=== PATIENT | female | born 1950 | race Caucasian/White ===

== ENCOUNTER 2017-11-20 09:14 | Emergency (ER) | payer MEDICARE ==
[2017-11-20] MEDS ORDERED: ONDANSETRON HCL/PF 2 MG/ML VIAL IV ONE (09:42)
[2017-11-20] MEDS ORDERED: ONDANSETRON HCL/PF 2 MG/ML VIAL ONE (09:43)
[2017-11-20 09:57] LABS: Hematocrit 42.3 % (37.0-47.0); Hemoglobin 13.9 gm/dL (12.5-16.0); Mean Cell Volume 87.2 fl (78-100); Mean Corpuscular Hemoglobin 28.7 pg (27-31); Mean Corpuscular Hgb Conc 32.9 g/dl (32-36); Mean Platelet Volume 10.9 fl (6.0-9.5); Neutrophil # 1.1 K/mm3 (1.3-6.0); Neutrophil % 49.9 % (42-75.0); Platelet Count 156 K/mm3 (150-450); Red Blood Count 4.85 M/mm3 (4.2-5.4); Red Cell Distribution Width 13.2 % (11.5-14.0); White Blood Count 2.2 K/mm3 (4.0-10.5)
[2017-11-20 10:16] LABS: Albumin * 3.4 gm/dl (3.4-5.0); Anion Gap 11.4 mmol/L (6.8-13.8); BUN/Creatinine Ratio 15.5 (9.0-21.6); Bilirubin, Total 0.6 mg/dL (0.0-1.1); Ca. Corrected For Albumin 8.8 mg/dL (8.4-10.2); Calcium * 8.6 mg/dL (7.9-10.9); Carbon Dioxide 30.2 mmol/L (24-32.6); Potassium 3.6 mmol/L (3.4-4.6); Total Protein 7.4 gm/dL (6.2-8.2); Troponin I 0.017 ng/ml (0.00-0.10)
[2017-11-20] MEDS ORDERED: NORMAL SALINE 1,000 ML IV PRN (11:05)
--- NOTE | 2017-11-20 11:13 | ERNOTE ---
Medical Problem HPI - General Chief Complaint: Nausea/Vomiting Time Seen by Provider: 11/20/17 10:41 Source: patient Exam Limitations: no limitations - Immun/Allergies/Home Medications Immunizations: IMMUNIZATION HX Immunizations Up to Date No: unknown History of Influenza Vaccine No Hx Pneumococcal Vaccination No Allergies/Adverse Reactions: Allergies No Known Allergies Allergy (Unverified 11/20/17 09:57) Home Medications: HOME MEDICATIONS Levothyroxine Sodium [Synthroid] 100 mcg PO DAILY 11/20/17 [Last Taken 11/20/17] - History of Present History Narrative: Patient started to get sick three days ago, cough,vomiting, subjective fever and body aches. She last vomited yesterday, has been able to keep down sips of water today, no temp here. Today she was lightheaded and dizzy which is the reason she came to the ER, denies any syncope. Date (Duration): 11/17/17 Review of Systems - Review of Systems Constitutional: Present: fever, chills ENT: Present: See HPI, nose congestion Respiratory: Present: See HPI, cough. Absent: shortness of breath Cardiology: Absent: chest pain Gastrointestinal/Abdominal: Present: See HPI, nausea, vomiting. Absent: diarrhea, abdominal pain Genitourinary: Present: no symptoms reported Musculoskeletal: Present: muscle pain - aches Skin: Absent: rash Neurological: Absent: headache, weakness, numbness - Patient's Past Medical History Patient History - Medical: Other Patient History - Cardiac/Respiratory: No pertinent hx Patient History - Cancer: No Hx of Cancer Patient History - Surgical Procedures: Cholecystectomy, Tubal Ligation, Hernia Repair - Family History Mother Family History - Medical: Father Family History - Medical: - Social History Living Situations: spouse Abuse History: No History of abuse Psych History: No pertinent hx Smoking Status: Never smoker Have you smoked in the past 12 months: No Do you dip or chew tobacco: No Alcohol Use: none Drug Use: none - Immunizations Immunizations Up to Date: No - unknown Hx Pneumococcal Vaccination: No History of Influenza Vaccine: No Physical Exam - Physical Exam General Appearance: Present: wd/wn, alert, no apparent distress, obese Head Exam: Present: normal inspection Eye Exam: Normal inspection: bilateral Ears, Nose, Throat: Present: normal except -, nasal congestion, normal pharynx Neck: Present: normal inspection Respiratory: Present: no respiratory distress, normal breath sounds, no accessory muscle use, lungs clear Cardiovascular/Chest: Present: regular rate, rhythm, no murmur Extremity Exam: Present: no edema Neurological Exam: Present: alert, oriented, normal mood/affect Skin Exam: Present: normal color, warm/dry ED Progress - Results and Orders Patient's Lab Results:: I have reviewed the patient's lab results. - Vital Signs Patient's Vital Signs:: I have reviewed the patient's vital signs. Vital Signs: Vital Signs 11/20/17 11/20/17 11/20/17 09:39 10:16 10:41 Temperature 36.7 C Pulse Rate 69 78 54 L Respiratory 15 18 15 Rate Blood Pressure 146/70 141/65 140/70 O2 Sat by Pulse 91 96 97 Oximetry 11/20/17 11:01 Temperature Pulse Rate 65 Respiratory 15 Rate Blood Pressure 140/70 O2 Sat by Pulse 96 Oximetry - EKG EKG: NSR, other - no acute changes, no prior EKG read: Interp. by me - X-Ray X-Ray #1 X-Ray: chest - bilateral basal atelectasis vs infiltrate Interpretation: Reviewed by me - Progress/Reassessment Chief Complaint: Nausea/Vomiting Progress Note-Subjective: 11/20/17 11:11 discussed results with patient, will hydrate 11/20/17 12:18 patient tolerated po, ready to go home, discussed O2 sats dropping to 88% on RA , offered patient admission, patient wants to go home 11/20/17 12:21 made follow up appointment with Dr Ellsworth Departure Clinical Impression: Influenza A, Dehydration - Departure Disposition: Home self-care Condition: Good Instructions: Influenza, Adult, [id number] Additional Instructions: follow up with Dr Ellsworth tomorrow as scheduled return to the ER at any time for shortness of breath or a new fever Referrals: Merly Ellsworth MD [Primary Care Provider] - 11/21/17 2:15 pm
[2017-11-20 12:06] VITALS: BP 126/62
== END 2017-11-20 12:33 | disposition home or self-care (01) ==
LOC: ER 09:14
DX: J10.1 Influenza due to other identified influenza virus with other respiratory manifestations; E86.0 Dehydration
CPT/HCPCS: 36415; 71046; 80053; 82150; 83690; 84484; 85025; 87400; 93005; 96361; 96374; 99283; J2405